=== PATIENT | male | born 1930 | race Caucasian/White ===

== ENCOUNTER 2017-06-12 22:03 | Inpatient (IN) | payer MEDICARE, BC ==
[~2017-06-12] VITALS: Ht 188 cm; Wt 78.0 kg
--- NOTE | ~2017-06-12 | EC ---
PATIENT:KATHLEEN BECKER DATE OF SERVICE: 06/13/17 SEX: M MEDICAL RECORD: [id number] DATE OF : [birth year] LOCATION:D.M2 D.211 AGE OF PATIENT: 87 ADMISSION DATE: 06/13/17 REFERRING PHYSICIAN: INTERPRETING PHYSICIAN: ACOSTA DUARTE MD ECHOCARDIOGRAM REPORT ECHO CHARGES 4 ECHO COMPLETE CLINICAL DIAGNOSIS: SOB ECHOCARDIOGRAPHIC MEASUREMENTS (adult normal given) AC root (d.<3.7cm) 4.5 cm LV Septum d (<1.2 cm> 1.5 cm Valve Excursion 2.0 cm LV Septum (systole) 1.7 cm Left Atria (s.<4.0cm> 2.0 cm LVPW d(<1.2cm) 1.6 cm RV (d.<2.3cm) 3.4 cm LVPW (sytole) 1.7 cm LV diastole(<5.6CM) 4.1 cm MV E-F(>70mm/sec) cm LV systole 2.7 cm LVOT Diameter 1.7 cm MV exc.(>10mm) 0.6 cm Est.ejection fraction (50-75%) % Pericardial Effusion N DOPPLER: LVIT cm/sec A 100 cm/sec E 45.0 cm/sec LA cm/sec RVSP 29 mmHg LVOT 79 cm/sec AOP1/2T m/s Asc. Ao 176 cm/sec RVOT 74 cm/sec RA cm/sec PA 87 cm/sec AV Gradient Peak 12.37mmHg AV Mean 5.84 mmHg AV Area 1.5 cm MV Gradient Peak 4.49 mmHg MV Mean 1.59 mmHg MV Area cm COMMENTS: Screener Operator: Gordon LOERA Dye Maker: 1 Dr. Duarte TAPE# PACS DATE OF SERVICE: 06/13/2017 Echocardiogram FINDINGS: 1. Left ventricular chamber size is within normal limits. Left ventricular systolic function is preserved. Overall ejection fraction 50-55%. 2. Left atrium is within normal limits at 3.4 cm. Right atrium and right ventricular chamber sizes are mildly dilated. 3. Valvular structures have normal structure and motion. ECHOCARDIOGRAM REPORT [id number] KATHLEEN BECKER 4. Doppler interrogation only reveals mild tricuspid regurgitation. No other valvular insufficiency or stenosis. Pulmonary systolic pressure is normal at 29 mmHg. 5. No evidence of pericardial effusion or left ventricular thrombus. TRANSINT:[id number] Voice Confirmation ID: [id number] DOCUMENT ID: [id number] ACOSTA DUARTE MD at 1323 CC: [id number] DICTATION DATE: 06/14/17 1055 FIRE SPRINKLER APPARATUS INSPECTOR: 06/14/17 1219 DIS IN 06/18/17 [place] [id number] [place] [id number]
[~2017-06-12 22:03] MED LIST: CLEOCIN HCL150 MG PO; HYDROCODONE-APA1 TAB PO; K-DUR20 MEQ PO; PRADAXA150 MG PO; QUESTRAN PACK4 G/PKT PO; TIMOPTIC 0.25% O5 M1 EACH EYE; XALATAN 0.0052.5 ML EACH EYE; ZOFRAN4 MG PO
[2017-06-12 23:01] LABS: BASOPHILS 0.2 % (0-2); EOSINOPHILS 0.5 % (0-7); HEMATOCRIT 35.9 % (42.0-54.0); HEMOGLOBIN 11.9 g/dL (13.5-17.5); IMMATURE GRANULOCYTES 0.2 % (0-5); LYMPHOCYTES 3.9 % (15-50); MCH 31.4 pg (26.0-34.0); MCHC 33.1 g/dL (31.0-37.0); MCV 94.7 fL (80.0-100.0); MONOCYTES 10.6 % (2-11); NEUTROPHILS 84.6 % (40-80); PLATELET COUNT 149 10x3/uL (130-400); RBC 3.79 10x6/uL (4.20-6.10); RDW 13.6 % (11.5-14.5); WBC 6.3 10x3/uL (4.8-10.8)
[2017-06-12 23:18] LABS: ALBUMIN 3.7 g/dL (3.4-5.0); ANION GAP 6.3 mmol/L (8-16); BILIRUBIN - TOTAL 0.89 mg/dL (0.2-1.3); CALCIUM 9.4 mg/dL (8.5-10.1); CARBON DIOXIDE 36.5 mmol/L (21.0-32.0); CREATININE - SERUM 1.1 mg/dL (0.6-1.3); POTASSIUM - SERUM 4.8 mmol/L (3.5-5.1); PROTEIN - SERUM 7.2 g/dL (6.4-8.2)
[2017-06-13 10:58] LABS: BASOPHILS 0.1 % (0-2); EOSINOPHILS 0 % (0-7); HEMATOCRIT 35.5 % (42.0-54.0); HEMOGLOBIN 11.8 g/dL (13.5-17.5); IMMATURE GRANULOCYTES 0.1 % (0-5); LYMPHOCYTES 4.4 % (15-50); MCH 31.4 pg (26.0-34.0); MCHC 33.2 g/dL (31.0-37.0); MCV 94.4 fL (80.0-100.0); MEAN PLATELET VOLUME 10.8 fL (7.4-10.4); MONOCYTES 11.8 % (2-11); NEUTROPHILS 83.6 % (40-80); RBC 3.76 10x6/uL (4.20-6.10); RDW 13.7 % (11.5-14.5); WBC 6.8 10x3/uL (4.8-10.8)
[2017-06-13 11:00] LABS: PLATELET COUNT 182 10x3/uL (130-400)
[2017-06-13] MEDS ORDERED: OXY IR30 MG PO (15:21)
[2017-06-13 15:24] VITALS: BP 140/59; BMI 22.7
[2017-06-13 16:06] VITALS: BP 140/59
[2017-06-13] MEDS ORDERED: GLYCOLAX527 GM PO (21:21)
[2017-06-13 21:25] VITALS: BP 122/61
[2017-06-14 00:36] VITALS: BP 138/60
[2017-06-14 04:45] VITALS: BP 133/66
[2017-06-14 05:29] LABS: BASOPHILS 0 % (0-2); EOSINOPHILS 0 % (0-7); HEMATOCRIT 34.8 % (42.0-54.0); HEMOGLOBIN 11.7 g/dL (13.5-17.5); IMMATURE GRANULOCYTES 0.2 % (0-5); LYMPHOCYTES 13.1 % (15-50); MCH 31.6 pg (26.0-34.0); MCHC 33.6 g/dL (31.0-37.0); MCV 94.1 fL (80.0-100.0); MEAN PLATELET VOLUME 9.8 fL (7.4-10.4); MONOCYTES 18.2 % (2-11); NEUTROPHILS 68.5 % (40-80); RDW 13.7 % (11.5-14.5)
[2017-06-14 05:30] LABS: PLATELET COUNT 134 10x3/uL (130-400); WBC 4.7 10x3/uL (4.8-10.8)
[2017-06-14 06:06] LABS: ALBUMIN 3.6 g/dL (3.4-5.0); ANION GAP 8.9 mmol/L (8-16); BILIRUBIN - TOTAL 0.7 mg/dL (0.2-1.3); CALCIUM 9.2 mg/dL (8.5-10.1); CARBON DIOXIDE 37.3 mmol/L (21.0-32.0); POTASSIUM - SERUM 4.2 mmol/L (3.5-5.1); PROTEIN - SERUM 7.5 g/dL (6.4-8.2)
[2017-06-14 06:10] LABS: CREATININE - SERUM 1.6 mg/dL (0.6-1.3)
[2017-06-14 08:05] VITALS: BP 132/71
[2017-06-14 12:10] VITALS: BP 117/63
[2017-06-14 12:31] VITALS: BMI 22.1
[2017-06-14 15:01] VITALS: BP 109/54
[2017-06-14 21:11] VITALS: BP 122/66
[2017-06-15 01:27] VITALS: BP 96/49
[2017-06-15 05:08] VITALS: BP 139/74
[2017-06-15 06:47] LABS: HEMATOCRIT 34.8 % (42.0-54.0); HEMOGLOBIN 11.8 g/dL (13.5-17.5); MCH 31.1 pg (26.0-34.0); MCHC 33.9 g/dL (31.0-37.0); MEAN PLATELET VOLUME 10.6 fL (7.4-10.4); PLATELET COUNT 157 10x3/uL (130-400); RBC 3.79 10x6/uL (4.20-6.10); RDW 13.8 % (11.5-14.5); WBC 4.8 10x3/uL (4.8-10.8)
[2017-06-15 06:50] LABS: MCV 91.8 fL (80.0-100.0)
[2017-06-15 07:09] LABS: ALBUMIN 3.3 g/dL (3.4-5.0); ANION GAP 10.7 mmol/L (8-16); BILIRUBIN - TOTAL 0.36 mg/dL (0.2-1.3); CREATININE - SERUM 1.4 mg/dL (0.6-1.3); POTASSIUM - SERUM 3.7 mmol/L (3.5-5.1); PROTEIN - SERUM 6.8 g/dL (6.4-8.2)
[2017-06-15 07:14] LABS: LYMPHOCYTES 13 % (15-50); MONOCYTES 12 % (2-11); NEUTROPHILS 68 % (40-80); PLATELET ESTIMATE DECREASED
[2017-06-15 07:54] VITALS: BP 107/51
[2017-06-15 12:57] VITALS: BP 113/76
[2017-06-15 16:10] VITALS: BP 103/58
[2017-06-15 20:58] VITALS: BP 111/59
[2017-06-16 05:19] VITALS: BP 107/62
[2017-06-16 05:37] LABS: BASOPHILS 0 % (0-2); EOSINOPHILS 0.3 % (0-7); HEMATOCRIT 36.4 % (42.0-54.0); HEMOGLOBIN 12.4 g/dL (13.5-17.5); IMMATURE GRANULOCYTES 0.3 % (0-5); LYMPHOCYTES 27.3 % (15-50); MCH 31.2 pg (26.0-34.0); MCHC 34.1 g/dL (31.0-37.0); MCV 91.5 fL (80.0-100.0); MEAN PLATELET VOLUME 10.5 fL (7.4-10.4); MONOCYTES 19.1 % (2-11); PLATELET COUNT 160 10x3/uL (130-400); RBC 3.98 10x6/uL (4.20-6.10); RDW 13.8 % (11.5-14.5)
[2017-06-16 05:41] LABS: WBC 3.3 10x3/uL (4.8-10.8)
[2017-06-16 06:03] LABS: ALBUMIN 3.5 g/dL (3.4-5.0); ANION GAP 10.3 mmol/L (8-16); BILIRUBIN - TOTAL 0.47 mg/dL (0.2-1.3); CALCIUM 9.1 mg/dL (8.5-10.1); CARBON DIOXIDE 35.1 mmol/L (21.0-32.0); CREATININE - SERUM 1.5 mg/dL (0.6-1.3); POTASSIUM - SERUM 3.4 mmol/L (3.5-5.1)
[2017-06-16 12:25] VITALS: BP 107/59
[2017-06-16 16:18] VITALS: BP 106/62
[2017-06-16 20:50] VITALS: BP 105/60
[2017-06-17 01:45] VITALS: BP 124/71
[2017-06-17 06:22] LABS: BASOPHILS 0 % (0-2); EOSINOPHILS 0.3 % (0-7); HEMATOCRIT 35.6 % (42.0-54.0); HEMOGLOBIN 12.1 g/dL (13.5-17.5); IMMATURE GRANULOCYTES 0.3 % (0-5); LYMPHOCYTES 24.1 % (15-50); MCH 31.5 pg (26.0-34.0); MCV 92.7 fL (80.0-100.0); MEAN PLATELET VOLUME 10.5 fL (7.4-10.4); MONOCYTES 17.5 % (2-11); NEUTROPHILS 57.8 % (40-80); PLATELET COUNT 150 10x3/uL (130-400); RBC 3.84 10x6/uL (4.20-6.10); RDW 13.9 % (11.5-14.5); WBC 3.8 10x3/uL (4.8-10.8)
[2017-06-17 06:31] LABS: ALBUMIN 3.6 g/dL (3.4-5.0); ANION GAP 7.1 mmol/L (8-16); BILIRUBIN - TOTAL 0.41 mg/dL (0.2-1.3); CALCIUM 9.1 mg/dL (8.5-10.1); CARBON DIOXIDE 36.9 mmol/L (21.0-32.0); CREATININE - SERUM 1.3 mg/dL (0.6-1.3); PROTEIN - SERUM 6.5 g/dL (6.4-8.2)
[2017-06-17 07:01] VITALS: BP 107/66
[2017-06-17 07:25] LABS: DIGOXIN 0.01 ng/mL (0.90-2.00)
[2017-06-17 09:25] VITALS: BP 113/61
[2017-06-17 12:43] VITALS: BP 110/62
[2017-06-17 17:32] VITALS: BP 180/64
[2017-06-17 20:00] VITALS: BP 122/61
[2017-06-18] VITALS: BP 115/61
[2017-06-18 04:00] VITALS: BP 119/66
[2017-06-18 05:30] LABS: BASOPHILS 0 % (0-2); EOSINOPHILS 0.8 % (0-7); HEMATOCRIT 31.8 % (42.0-54.0); IMMATURE GRANULOCYTES 0.3 % (0-5); LYMPHOCYTES 23.1 % (15-50); MCH 31.6 pg (26.0-34.0); MCHC 34.6 g/dL (31.0-37.0); MCV 91.4 fL (80.0-100.0); MEAN PLATELET VOLUME 10.3 fL (7.4-10.4); MONOCYTES 13.8 % (2-11); PLATELET COUNT 137 10x3/uL (130-400); RBC 3.48 10x6/uL (4.20-6.10); RDW 13.7 % (11.5-14.5); WBC 3.8 10x3/uL (4.8-10.8)
[2017-06-18 05:44] LABS: ALBUMIN 3.2 g/dL (3.4-5.0); ALKALINE PHOSPHATASE 88 U/L (46-116); ALT (SGPT) 22 U/L (10-68); BILIRUBIN - TOTAL 0.42 mg/dL (0.2-1.3); CALC OSMOLALITY 279 mosm/kg (275-300); CALCIUM 8.9 mg/dL (8.5-10.1); CARBON DIOXIDE 34.9 mmol/L (21.0-32.0); CHLORIDE - SERUM 96 mmol/L (98-107); GLUCOSE 84 mg/dL (74-106); PROTEIN - SERUM 6.5 g/dL (6.4-8.2); SODIUM 136 mmol/L (136-145); UREA NITROGEN 38 mg/dL (7-18); eGFR NON AFRICAN AMERICAN 75 mL/min (90-120)
[2017-06-18 10:18] VITALS: BP 113/64
[2017-06-18] MEDS ORDERED: PROTONIX40 MG PO (15:15)
[2017-06-18] MEDS ORDERED: ATROVENT 0.02%2.5 ML UPD (15:16)
[2017-06-18] MEDS ORDERED: BROVANA15 MCG/2 M INH (15:16)
[2017-06-18] MEDS ORDERED: XOPENEX 0.0.63 MG/3 UPD (15:16)
[2017-06-18] MEDS ORDERED: QUESTRAN PACK4 G/PKT PO (15:17)
[2017-06-18] MEDS ORDERED: LOVENOX30 MG/0.3 SC (15:17)
[2017-06-18] MEDS ORDERED: LANOXIN IN0.5 MG/2 M IV (15:17)
[2017-06-18] MEDS ORDERED: ZITHROMAX 500M500 MG PO (15:17)
[2017-06-18] MEDS ORDERED: K-DUR20 MEQ PO (15:18)
[2017-06-18] MEDS ORDERED: FUROSEMIDE10 MG/M1 IV (15:18)
[2017-06-18] MEDS ORDERED: MUCINEX600 MG PO (15:19)
[2017-06-18] MEDS ORDERED: SINGULAIR10 MG PO (15:19)
[2017-06-18] MEDS ORDERED: PULMICORT0.5 MG/21 UPD (15:19)
[2017-06-18] MEDS ORDERED: TESSALON PERLE100 MG PO (15:19)
[2017-06-18] MEDS ORDERED: ZITHROMAX500 MG PO (15:38)
[2017-06-18] MEDS ORDERED: FUROSEMIDE20 MG PO (15:39)
[2017-06-18] MEDS ORDERED: LANOXIN125 MCG PO (15:39)
[2017-06-18 21:39] VITALS: Ht 188 cm; Wt 78.0 kg
[2017-06-19 07:21] LABS: IMMUNOGLOBULIN E 6 IU/mL (0-100)
== END 2017-06-18 17:00 | DRG 177 ==
LOC: D.ER 22:03 → D.M2 06-13 07:24 → D.SDCHOLD 06-13 07:24 → D.M2 06-13 13:59
PROVIDERS: Emergency Medicine; Family Medicine; Internal Medicine Pulmonary Disease
DX: J69.0 Pneumonitis due to inhalation of food and vomit (principal); I50.23 Acute on chronic systolic (congestive) heart failure; J44.1 Chronic obstructive pulmonary disease with (acute) exacerbation; J44.0 Chronic obstructive pulmonary disease with (acute) lower respiratory infection; J98.11 Atelectasis; I42.9 Cardiomyopathy, unspecified; J96.10 Chronic respiratory failure, unspecified whether with hypoxia or hypercapnia; J18.9 Pneumonia, unspecified organism; N18.9 Chronic kidney disease, unspecified; R39.2 Extrarenal uremia; G62.9 Polyneuropathy, unspecified; E87.6 Hypokalemia; I25.10 Atherosclerotic heart disease of native coronary artery without angina pectoris; Z99.81 Dependence on supplemental oxygen; D64.9 Anemia, unspecified; I48.2 Chronic atrial fibrillation; J30.9 Allergic rhinitis, unspecified; I95.1 Orthostatic hypotension; Z95.0 Presence of cardiac pacemaker; Z87.891 Personal history of nicotine dependence

== ENCOUNTER 2017-06-18 17:03 | Inpatient (IN) | payer MEDICARE, BC ==
[~2017-06-18] VITALS: Ht 188 cm; Wt 79.4 kg
[~2017-06-18 17:03] MED LIST changes: +ATROVENT 0.02%2.5 ML UPD; +BROVANA15 MCG/2 M INH; +FUROSEMIDE10 MG/M1 IV; +FUROSEMIDE20 MG PO; +GLYCOLAX527 GM PO; +LANOXIN IN0.5 MG/2 M IV; +LANOXIN125 MCG PO; +LOVENOX30 MG/0.3 SC; +MUCINEX600 MG PO; +OXY IR30 MG PO; +PROTONIX40 MG PO; +PULMICORT0.5 MG/21 UPD; +SINGULAIR10 MG PO; +TESSALON PERLE100 MG PO; +XOPENEX 0.0.63 MG/3 UPD; +ZITHROMAX 500M500 MG PO; +ZITHROMAX500 MG PO
[2017-06-18 18:32] VITALS: BP 92/53; BMI 22.5
[2017-06-19 06:21] LABS: BASOPHILS 0.2 % (0-2); EOSINOPHILS 0.8 % (0-7); HEMOGLOBIN 11.1 g/dL (13.5-17.5); IMMATURE GRANULOCYTES 0.2 % (0-5); LYMPHOCYTES 20.8 % (15-50); MCH 31.7 pg (26.0-34.0); MCHC 34.7 g/dL (31.0-37.0); MCV 91.4 fL (80.0-100.0); MEAN PLATELET VOLUME 10.5 fL (7.4-10.4); MONOCYTES 11.5 % (2-11); NEUTROPHILS 66.5 % (40-80); PLATELET COUNT 132 10x3/uL (130-400); RDW 13.7 % (11.5-14.5)
[2017-06-19 06:30] LABS: WBC 4.8 10x3/uL (4.8-10.8)
[2017-06-19 06:57] LABS: ANION GAP 9.2 mmol/L (8-16); CALCIUM 8.9 mg/dL (8.5-10.1); CARBON DIOXIDE 37.2 mmol/L (21.0-32.0); CREATININE - SERUM 1.1 mg/dL (0.6-1.3); POTASSIUM - SERUM 4.4 mmol/L (3.5-5.1)
[2017-06-19 07:58] VITALS: BP 117/57
[2017-06-19 10:37] VITALS: Ht 188 cm; Wt 79.4 kg
[2017-06-19 19:30] VITALS: BP 129/61
[2017-06-20 08:34] VITALS: BP 122/56
[2017-06-20 23:31] VITALS: BP 118/54
[2017-06-21 06:53] LABS: BASOPHILS 0.1 % (0-2); EOSINOPHILS 0.4 % (0-7); HEMATOCRIT 31.2 % (42.0-54.0); HEMOGLOBIN 10.5 g/dL (13.5-17.5); IMMATURE GRANULOCYTES 0.5 % (0-5); LYMPHOCYTES 10.7 % (15-50); MCH 31.1 pg (26.0-34.0); MCHC 33.7 g/dL (31.0-37.0); MCV 92.3 fL (80.0-100.0); MEAN PLATELET VOLUME 10.4 fL (7.4-10.4); MONOCYTES 12.1 % (2-11); NEUTROPHILS 76.2 % (40-80); PLATELET COUNT 117 10x3/uL (130-400); RBC 3.38 10x6/uL (4.20-6.10); RDW 13.8 % (11.5-14.5)
[2017-06-21 06:56] LABS: WBC 7.7 10x3/uL (4.8-10.8)
[2017-06-21 07:18] LABS: CALC OSMOLALITY 273 mosm/kg (275-300); CARBON DIOXIDE 33.5 mmol/L (21.0-32.0); CHLORIDE - SERUM 96 mmol/L (98-107); CREATININE - SERUM 0.9 mg/dL (0.6-1.3); GLUCOSE 101 mg/dL (74-106); POTASSIUM - SERUM 4.5 mmol/L (3.5-5.1); SODIUM 135 mmol/L (136-145); UREA NITROGEN 25 mg/dL (7-18); eGFR NON AFRICAN AMERICAN 85 mL/min (90-120)
[2017-06-21 19:00] VITALS: BP 122/54
[2017-06-22 08:16] VITALS: BP 112/54
[2017-06-22 19:00] VITALS: BP 117/48
[2017-06-23 08:23] VITALS: BP 132/54
[2017-06-23 19:00] VITALS: BP 124/52
[2017-06-24 07:28] LABS: BASOPHILS 0 % (0-2); EOSINOPHILS 0.5 % (0-7); HEMATOCRIT 27.6 % (42.0-54.0); HEMOGLOBIN 9.2 g/dL (13.5-17.5); IMMATURE GRANULOCYTES 0.4 % (0-5); LYMPHOCYTES 8.1 % (15-50); MCH 31.4 pg (26.0-34.0); MCHC 33.3 g/dL (31.0-37.0); MCV 94.2 fL (80.0-100.0); MEAN PLATELET VOLUME 10.4 fL (7.4-10.4); MONOCYTES 13.9 % (2-11); NEUTROPHILS 77.1 % (40-80); RBC 2.93 10x6/uL (4.20-6.10); RDW 13.6 % (11.5-14.5); WBC 7.9 10x3/uL (4.8-10.8)
[2017-06-24 07:31] LABS: PLATELET COUNT 202 10x3/uL (130-400)
[2017-06-24 07:46] LABS: ANION GAP 8.8 mmol/L (8-16); CALCIUM 9.1 mg/dL (8.5-10.1); CARBON DIOXIDE 34.2 mmol/L (21.0-32.0); CREATININE - SERUM 1.1 mg/dL (0.6-1.3); DIGOXIN 0.73 ng/mL (0.90-2.00)
[2017-06-24 08:00] VITALS: BP 98/48
[2017-06-25 01:01] VITALS: BP 100/55
[2017-06-25 08:00] VITALS: BP 106/53
[2017-06-25 11:09] LABS: CKMB 0.4 U/L (0.0-3.6); CREATINE KINASE 12 UL (21-232); TROPONIN-I 0.025 ng/mL (0.000-0.060)
[2017-06-25 16:43] LABS: CKMB 0.4 U/L (0.0-3.6); CREATINE KINASE 14 UL (21-232); TROPONIN-I < 0.017 ng/mL (0.000-0.060)
[2017-06-25 21:55] LABS: CKMB 0.5 U/L (0.0-3.6); CREATINE KINASE 10 UL (21-232)
[2017-06-25 22:07] LABS: TROPONIN-I < 0.017 ng/mL (0.000-0.060)
[2017-06-26 08:16] VITALS: BP 108/45
[2017-06-26 19:30] VITALS: BP 109/47
[2017-06-27 08:00] VITALS: BP 119/54
[2017-06-27 08:28] LABS: HEMATOCRIT 27.2 % (42.0-54.0); HEMOGLOBIN 8.9 g/dL (13.5-17.5); LYMPHOCYTES 9.3 % (15-50); MCHC 32.7 g/dL (31.0-37.0); MCV 94.8 fL (80.0-100.0); NEUTROPHILS 78.2 % (40-80); RBC 2.87 10x6/uL (4.20-6.10); RDW 12.9 % (11.5-14.5); WBC 6.7 10x3/uL (4.8-10.8)
[2017-06-27 08:29] LABS: PLATELET COUNT 263 10x3/uL (130-400)
[2017-06-27 08:58] LABS: ANION GAP 9.2 mmol/L (8-16); CALCIUM 8.9 mg/dL (8.5-10.1); CREATININE - SERUM 1.2 mg/dL (0.6-1.3); POTASSIUM - SERUM 5.2 mmol/L (3.5-5.1)
[2017-06-27 21:56] VITALS: BP 149/51
[2017-06-28 08:00] VITALS: BP 109/52
[2017-06-28] MEDS ORDERED: LEXAPRO10 MG PO (11:06)
[2017-06-28] MEDS ORDERED: REMERON15 MG PO (13:14)
== END 2017-06-28 14:50 | disposition home health service (06) | DRG 190 ==
LOC: D.REHAB 17:03
PROVIDERS: Emergency Medicine
DX: J44.1 Chronic obstructive pulmonary disease with (acute) exacerbation (principal); J18.9 Pneumonia, unspecified organism; I50.23 Acute on chronic systolic (congestive) heart failure; J90 Pleural effusion, not elsewhere classified; J98.11 Atelectasis; I42.9 Cardiomyopathy, unspecified; I48.2 Chronic atrial fibrillation; I25.10 Atherosclerotic heart disease of native coronary artery without angina pectoris; R53.1 Weakness; Z66 Do not resuscitate; R53.83 Other fatigue; E86.0 Dehydration; D64.9 Anemia, unspecified; E87.6 Hypokalemia; Z99.81 Dependence on supplemental oxygen; R50.9 Fever, unspecified; G62.9 Polyneuropathy, unspecified

== ENCOUNTER → 2017-07-30 14:23 | Outpatient (CLI) | payer MEDICARE, BC ==
[2017-06-19 10:37] VITALS: BMI 22.4
[~2017-07-30 14:23] MED LIST changes: +LEXAPRO10 MG PO; +REMERON15 MG PO
[2017-07-30 14:43] LABS: BASOPHILS 0.1 % (0-2); EOSINOPHILS 0.5 % (0-7); HEMATOCRIT 37.4 % (42.0-54.0); HEMOGLOBIN 12.2 g/dL (13.5-17.5); IMMATURE GRANULOCYTES 0.1 % (0-5); LYMPHOCYTES 14.3 % (15-50); MCH 31.5 pg (26.0-34.0); MCHC 32.6 g/dL (31.0-37.0); MCV 96.6 fL (80.0-100.0); MEAN PLATELET VOLUME 10.5 fL (7.4-10.4); MONOCYTES 11.1 % (2-11); NEUTROPHILS 73.9 % (40-80); PLATELET COUNT 224 10x3/uL (130-400); RBC 3.87 10x6/uL (4.20-6.10); RDW 14.5 % (11.5-14.5); WBC 8.1 10x3/uL (4.8-10.8)
[2017-07-30 15:21] LABS: ALBUMIN 3.6 g/dL (3.4-5.0); ALKALINE PHOSPHATASE 96 U/L (46-116); ALT (SGPT) 16 U/L (10-68); BILIRUBIN - TOTAL 0.49 mg/dL (0.2-1.3); CALC OSMOLALITY 277 mosm/kg (275-300); CALCIUM 9.1 mg/dL (8.5-10.1); CARBON DIOXIDE 33.2 mmol/L (21.0-32.0); CHLORIDE - SERUM 100 mmol/L (98-107); GLUCOSE 116 mg/dL (74-106); POTASSIUM - SERUM 4.5 mmol/L (3.5-5.1); PROTEIN - SERUM 6.7 g/dL (6.4-8.2); SODIUM 137 mmol/L (136-145); THYROID STIMULATING HORMONE 1.04 uIU/mL (0.36-3.74); UREA NITROGEN 20 mg/dL (7-18); eGFR NON AFRICAN AMERICAN 75 mL/min (90-120)
== END | disposition home or self-care (01) ==
LOC: D.LABREF 14:23
PROVIDERS: Emergency Medicine
DX: J44.1 Chronic obstructive pulmonary disease with (acute) exacerbation (principal); N18.9 Chronic kidney disease, unspecified; D64.9 Anemia, unspecified; I50.43 Acute on chronic combined systolic (congestive) and diastolic (congestive) heart failure

== ENCOUNTER 2017-08-20 12:55 | Emergency (ER) | payer MEDICARE, BC ==
[2017-06-19 10:37] VITALS: BMI 22.4
[2017-08-20 13:46] LABS: BASOPHILS 0.1 % (0-2); EOSINOPHILS 0.7 % (0-7); HEMATOCRIT 35.1 % (42.0-54.0); HEMOGLOBIN 11.8 g/dL (13.5-17.5); IMMATURE GRANULOCYTES 0.1 % (0-5); LYMPHOCYTES 13.1 % (15-50); MCH 31.6 pg (26.0-34.0); MCHC 33.6 g/dL (31.0-37.0); MCV 93.9 fL (80.0-100.0); MEAN PLATELET VOLUME 9.9 fL (7.4-10.4); PLATELET COUNT 156 10x3/uL (130-400); RBC 3.74 10x6/uL (4.20-6.10); WBC 7.3 10x3/uL (4.8-10.8)
[2017-08-20 14:04] LABS: ALBUMIN 3.5 g/dL (3.4-5.0); ALKALINE PHOSPHATASE 79 U/L (46-116); ALT (SGPT) 17 U/L (10-68); BILIRUBIN - TOTAL 0.84 mg/dL (0.2-1.3); CALC OSMOLALITY 275 mosm/kg (275-300); CALCIUM 9.5 mg/dL (8.5-10.1); CHLORIDE - SERUM 99 mmol/L (98-107); CREATININE - SERUM 0.9 mg/dL (0.6-1.3); GLUCOSE 105 mg/dL (74-106); POTASSIUM - SERUM 4.1 mmol/L (3.5-5.1); SODIUM 137 mmol/L (136-145); UREA NITROGEN 18 mg/dL (7-18); eGFR NON AFRICAN AMERICAN 85 mL/min (90-120)
[2017-08-20 14:12] LABS: PRO BNP 937 pg/mL (0-450)
[2017-08-20 14:18] LABS: DIGOXIN 0.77 ng/mL (0.90-2.00); MAGNESIUM - SERUM 2.4 mg/dL (1.8-2.4)
[2017-08-20 14:54] LABS: APPEARANCE CLEAR (CLEAR); BILIRUBIN NEGATIVE (NEGATIVE); COLOR YELLOW (YELLOW); GLUCOSE NEGATIVE (NEGATIVE); KETONE NEGATIVE (NEGATIVE); NITRITE NEGATIVE (NEGATIVE); PROTEIN TRACE mg/dL (NEGATIVE); SPECIFIC GRAVITY 1.015 (1.005-1.020); UROBILINOGEN NORMAL (NORMAL)
[2017-08-20 15:08] LABS: RED CELLS - URINE 0-5 /hpf (0-5)
[2017-08-20 15:09] LABS: BACTERIA FEW /hpf (NONE SEEN)
== END 2017-08-20 17:06 | disposition home or self-care (01) ==
LOC: D.ER 12:55
PROVIDERS: Emergency Medicine
DX: R06.00 Dyspnea, unspecified (principal); I48.92 Unspecified atrial flutter; D64.9 Anemia, unspecified; I50.9 Heart failure, unspecified; N39.0 Urinary tract infection, site not specified; J44.9 Chronic obstructive pulmonary disease, unspecified; Z95.0 Presence of cardiac pacemaker

== ENCOUNTER 2017-08-29 11:34 | Inpatient (IN) | payer MEDICARE, BC ==
[~2017-08-29] VITALS: Ht 188 cm; Wt 72.6 kg
--- NOTE | ~2017-08-29 | EC ---
PATIENT:KATHLEEN BECKER DATE OF SERVICE: 08/29/17 SEX: M MEDICAL RECORD: [id number] DATE OF : 30 LOCATION:[facility] AGE OF PATIENT: 87 ADMISSION DATE: 08/29/17 REFERRING PHYSICIAN: INTERPRETING PHYSICIAN: ACOSTA DUARTE MD ECHOCARDIOGRAM REPORT ECHO CHARGES 4 ECHO COMPLETE DATE: CLINICAL DIAGNOSIS: CHEST PAIN/ATRIAL FLUTTER ECHOCARDIOGRAPHIC MEASUREMENTS (adult normal given) AC root (d.<3.7cm) 4.0 cm LV Septum d (<1.2 cm> 1.7 cm Valve Excursion 2.1 cm LV Septum (systole) 1.9 cm Left Atria (s.<4.0cm> 3.6 cm LVPW d(<1.2cm) 1.9 cm RV (d.<2.3cm) 3.1 cm LVPW (sytole) 2.0 cm LV diastole(<5.6CM) 4.0 cm MV E-F(>70mm/sec) cm LV systole 2.3 cm LVOT Diameter 2.4 cm MV exc.(>10mm) 1.5 cm Est.ejection fraction (50-75%) % DOPPLER: LVIT cm/sec A 82.0 cm/sec E 61.0 cm/sec LA cm/sec RVSP 28 mmHg LVOT 86 cm/sec AOP1/2T m/s Asc. Ao 124 cm/sec RVOT 103 cm/sec RA cm/sec PA 126 cm/sec AV Gradient Peak 6.16 mmHg AV Mean 3.32 mmHg AV Area 2.9 cm MV Gradient Peak 4.67 mmHg MV Mean 1.34 mmHg MV Area cm COMMENTS: Head Turning Machine Operator: Gordon LOERA Heat Treat Inspector: 1 Dr. Duarte TAPE# PACS Pericardial Effusion N DATE OF SERVICE: 09/01/2017 Echocardiogram FINDINGS: 1. Left ventricular chamber size is within normal limits. Left ventricular systolic function is normal. Overall ejection fraction estimated at 60%. 2. Left atrium, right atrium, and right ventricular chamber sizes are within normal limits. 3. Valvular structures have normal structure and motion. ECHOCARDIOGRAM REPORT [id number] KATHLEEN BECKER 4. Doppler interrogation reveals mild mitral regurgitation, mild tricuspid regurgitation, no other valvular insufficiency or stenosis. 5. No evidence of pericardial effusion or left ventricular thrombus. TRANSINT:[id number] Voice Confirmation ID: [id number] DOCUMENT ID: [id number] ACOSTA DUARTE MD at 1140 CC: [id number] DICTATION DATE: 09/02/17 1252 WINDOWS SERVER ARCHITECT: 09/02/17 1301 DIS IN 09/03/17 [place] [id number] [place] [id number]
[2017-08-29 12:36] VITALS: BP 136/64
[2017-08-29 13:18] LABS: BASOPHILS 0.3 % (0-2); EOSINOPHILS 0.4 % (0-7); HEMATOCRIT 35.7 % (42.0-54.0); HEMOGLOBIN 12.2 g/dL (13.5-17.5); IMMATURE GRANULOCYTES 0.3 % (0-5); LYMPHOCYTES 8.7 % (15-50); MCH 31.4 pg (26.0-34.0); MCHC 34.2 g/dL (31.0-37.0); MEAN PLATELET VOLUME 10.1 fL (7.4-10.4); MONOCYTES 14.3 % (2-11); PLATELET COUNT 181 10x3/uL (130-400); RBC 3.88 10x6/uL (4.20-6.10); WBC 7.9 10x3/uL (4.8-10.8)
[2017-08-29 13:35] LABS: ALKALINE PHOSPHATASE 80 U/L (46-116); ALT (SGPT) 18 U/L (10-68); BILIRUBIN - TOTAL 1.23 mg/dL (0.2-1.3); CALC OSMOLALITY 274 mosm/kg (275-300); CALCIUM 9.4 mg/dL (8.5-10.1); CARBON DIOXIDE 31.2 mmol/L (21.0-32.0); CHLORIDE - SERUM 96 mmol/L (98-107); GLUCOSE 111 mg/dL (74-106); POTASSIUM - SERUM 4.2 mmol/L (3.5-5.1); SODIUM 135 mmol/L (136-145); UREA NITROGEN 23 mg/dL (7-18); eGFR NON AFRICAN AMERICAN 75 mL/min (90-120)
[2017-08-29] MEDS ORDERED: MUCINEX600 MG PO (13:41)
[2017-08-29 13:46] LABS: CKMB 2.1 U/L (0.0-3.6); CREATINE KINASE 33 UL (21-232); DIGOXIN 0.83 ng/mL (0.90-2.00); PRO BNP 888 pg/mL (0-450); TROPONIN-I 0.028 ng/mL (0.000-0.060)
[2017-08-29 15:46] VITALS: BP 125/53
[2017-08-29 19:14] VITALS: BMI 20.5
[2017-08-29 20:00] VITALS: BP 114/40
[2017-08-30] VITALS: BP 148/54
[2017-08-30 04:00] VITALS: BP 134/52
[2017-08-30 08:08] VITALS: BP 131/60
[2017-08-30 12:57] VITALS: BP 127/42
[2017-08-30 13:23] VITALS: BMI 20.5
[2017-08-30 14:13] VITALS: Ht 188 cm; Wt 72.6 kg
[2017-08-30 16:37] VITALS: BP 150/67
[2017-08-30 22:00] VITALS: BP 127/57
[2017-08-31 00:32] VITALS: BP 134/50
[2017-08-31 04:00] VITALS: BP 125/56
[2017-08-31 06:29] LABS: BASOPHILS 0 % (0-2); EOSINOPHILS 0.9 % (0-7); HEMATOCRIT 32.6 % (42.0-54.0); IMMATURE GRANULOCYTES 0.2 % (0-5); LYMPHOCYTES 12.1 % (15-50); MCHC 33.7 g/dL (31.0-37.0); MCV 91.8 fL (80.0-100.0); MEAN PLATELET VOLUME 10.2 fL (7.4-10.4); MONOCYTES 12.3 % (2-11); NEUTROPHILS 74.5 % (40-80); PLATELET COUNT 166 10x3/uL (130-400); RBC 3.55 10x6/uL (4.20-6.10); RDW 13.7 % (11.5-14.5)
[2017-08-31 06:33] LABS: WBC 5.4 10x3/uL (4.8-10.8)
[2017-08-31 06:43] LABS: CALC OSMOLALITY 269 mosm/kg (275-300); CALCIUM 8.9 mg/dL (8.5-10.1); CARBON DIOXIDE 31.2 mmol/L (21.0-32.0); CHLORIDE - SERUM 95 mmol/L (98-107); GLUCOSE 94 mg/dL (74-106); POTASSIUM - SERUM 3.9 mmol/L (3.5-5.1); SODIUM 134 mmol/L (136-145); UREA NITROGEN 18 mg/dL (7-18); eGFR NON AFRICAN AMERICAN 75 mL/min (90-120)
[2017-08-31 08:03] VITALS: BP 152/56
[2017-08-31 12:16] VITALS: BP 122/58
[2017-08-31 16:14] VITALS: BP 130/57
[2017-08-31 20:00] VITALS: BP 119/56
[2017-09-01] VITALS: BP 132/69
[2017-09-01 04:00] VITALS: BP 130/51
[2017-09-01 05:16] LABS: CALC OSMOLALITY 270 mosm/kg (275-300); CARBON DIOXIDE 32.5 mmol/L (21.0-32.0); CHLORIDE - SERUM 96 mmol/L (98-107); GLUCOSE 94 mg/dL (74-106); SODIUM 134 mmol/L (136-145); UREA NITROGEN 20 mg/dL (7-18); eGFR NON AFRICAN AMERICAN 75 mL/min (90-120)
[2017-09-01 05:25] LABS: BASOPHILS 0.2 % (0-2); HEMATOCRIT 33.6 % (42.0-54.0); HEMOGLOBIN 11.5 g/dL (13.5-17.5); IMMATURE GRANULOCYTES 0.2 % (0-5); LYMPHOCYTES 12.8 % (15-50); MCH 31.3 pg (26.0-34.0); MCHC 34.2 g/dL (31.0-37.0); MCV 91.3 fL (80.0-100.0); MEAN PLATELET VOLUME 10.4 fL (7.4-10.4); MONOCYTES 14.6 % (2-11); NEUTROPHILS 71.2 % (40-80); PLATELET COUNT 173 10x3/uL (130-400); RBC 3.68 10x6/uL (4.20-6.10); RDW 13.9 % (11.5-14.5); WBC 6.1 10x3/uL (4.8-10.8)
[2017-09-01 08:06] VITALS: BP 109/49
[2017-09-01 12:12] VITALS: BP 131/58
[2017-09-01 15:05] LABS: CKMB 2.3 U/L (0.0-3.6); CREATINE KINASE 60 UL (21-232); TROPONIN-I 0.045 ng/mL (0.000-0.060)
[2017-09-01 16:27] VITALS: BP 110/47
[2017-09-01 20:00] VITALS: BP 129/54
[2017-09-01 20:24] LABS: CREATINE KINASE 55 UL (21-232); TROPONIN-I 0.033 ng/mL (0.000-0.060)
[2017-09-02] VITALS: BP 133/64
[2017-09-02 01:48] LABS: CREATINE KINASE 69 UL (21-232); TROPONIN-I 0.034 ng/mL (0.000-0.060)
[2017-09-02 06:00] VITALS: BP 141/65
[2017-09-02 06:14] LABS: BASOPHILS 0 % (0-2); EOSINOPHILS 0.8 % (0-7); HEMATOCRIT 37.7 % (42.0-54.0); HEMOGLOBIN 13.1 g/dL (13.5-17.5); IMMATURE GRANULOCYTES 0.3 % (0-5); MCH 31.8 pg (26.0-34.0); MCHC 34.7 g/dL (31.0-37.0); MCV 91.5 fL (80.0-100.0); MONOCYTES 15.3 % (2-11); NEUTROPHILS 76.6 % (40-80); PLATELET COUNT 166 10x3/uL (130-400); RBC 4.12 10x6/uL (4.20-6.10); RDW 13.9 % (11.5-14.5); WBC 6.3 10x3/uL (4.8-10.8)
[2017-09-02 06:32] LABS: ANION GAP 11.8 mmol/L (8-16); CALCIUM 9.9 mg/dL (8.5-10.1); CARBON DIOXIDE 34.3 mmol/L (21.0-32.0); CREATININE - SERUM 1.3 mg/dL (0.6-1.3); POTASSIUM - SERUM 4.1 mmol/L (3.5-5.1)
[2017-09-02 08:45] VITALS: BP 124/67
[2017-09-02 13:11] VITALS: BP 103/40
[2017-09-02 16:44] VITALS: BP 143/61
[2017-09-02 16:58] LABS: APPEARANCE CLEAR (CLEAR); COLOR YELLOW (YELLOW); SPECIFIC GRAVITY 1.005 (1.005-1.020)
[2017-09-02 16:59] LABS: BILIRUBIN NEGATIVE (NEGATIVE); GLUCOSE NEGATIVE (NEGATIVE); KETONE NEGATIVE (NEGATIVE); NITRITE NEGATIVE (NEGATIVE); PROTEIN NEGATIVE (NEGATIVE); UROBILINOGEN NORMAL (NORMAL)
[2017-09-02 20:00] VITALS: BP 114/42
[2017-09-03 06:01] LABS: BASOPHILS 0 % (0-2); EOSINOPHILS 0.7 % (0-7); HEMATOCRIT 36.3 % (42.0-54.0); IMMATURE GRANULOCYTES 0.2 % (0-5); LYMPHOCYTES 9.2 % (15-50); MCHC 33.1 g/dL (31.0-37.0); MEAN PLATELET VOLUME 10.2 fL (7.4-10.4); MONOCYTES 15.5 % (2-11); NEUTROPHILS 74.4 % (40-80); PLATELET COUNT 150 10x3/uL (130-400); RBC 3.87 10x6/uL (4.20-6.10)
[2017-09-03 06:12] LABS: WBC 4.3 10x3/uL (4.8-10.8)
[2017-09-03 06:13] LABS: MCV 93.8 fL (80.0-100.0)
[2017-09-03 06:28] LABS: ANION GAP 8.3 mmol/L (8-16); CALCIUM 9.4 mg/dL (8.5-10.1); CARBON DIOXIDE 35.4 mmol/L (21.0-32.0); CREATININE - SERUM 1.2 mg/dL (0.6-1.3); POTASSIUM - SERUM 4.7 mmol/L (3.5-5.1)
[2017-09-03 08:55] VITALS: BP 108/31
[2017-09-03 13:05] VITALS: BP 99/39
[2017-09-03 16:00] VITALS: BP 91/42
== END 2017-09-03 17:50 | DRG 177 ==
LOC: D.MS 11:34
PROVIDERS: Emergency Medicine; Internal Medicine Nephrology
DX: J15.6 Pneumonia due to other Gram-negative bacteria (principal); I50.33 Acute on chronic diastolic (congestive) heart failure; J44.0 Chronic obstructive pulmonary disease with (acute) lower respiratory infection; J98.11 Atelectasis; J44.1 Chronic obstructive pulmonary disease with (acute) exacerbation; I24.8 Other forms of acute ischemic heart disease; N17.9 Acute kidney failure, unspecified; F41.9 Anxiety disorder, unspecified; I07.1 Rheumatic tricuspid insufficiency; I48.91 Unspecified atrial fibrillation; D64.9 Anemia, unspecified; K21.9 Gastro-esophageal reflux disease without esophagitis; G62.9 Polyneuropathy, unspecified; H40.9 Unspecified glaucoma; Z95.0 Presence of cardiac pacemaker; Z87.891 Personal history of nicotine dependence; R33.9 Retention of urine, unspecified

== ENCOUNTER 2017-09-03 18:45 | Inpatient (IN) | payer MEDICARE, BC ==
[~2017-09-03] VITALS: Ht 188 cm; Wt 72.6 kg
[2017-09-03 20:19] VITALS: BP 107/51
[2017-09-03 20:32] VITALS: BP 107/51; BMI 20.5
[2017-09-04 07:46] VITALS: BP 138/53
[2017-09-04 09:09] LABS: BASOPHILS 0 % (0-2); EOSINOPHILS 0.3 % (0-7); HEMATOCRIT 37.9 % (42.0-54.0); HEMOGLOBIN 12.7 g/dL (13.5-17.5); IMMATURE GRANULOCYTES 0.5 % (0-5); LYMPHOCYTES 15.2 % (15-50); MCH 31.4 pg (26.0-34.0); MCHC 33.5 g/dL (31.0-37.0); MCV 93.6 fL (80.0-100.0); MEAN PLATELET VOLUME 10.2 fL (7.4-10.4); MONOCYTES 13.6 % (2-11); NEUTROPHILS 70.4 % (40-80); PLATELET COUNT 167 10x3/uL (130-400); RBC 4.05 10x6/uL (4.20-6.10)
[2017-09-04 09:20] LABS: ANION GAP 10.6 mmol/L (8-16); CALCIUM 9.4 mg/dL (8.5-10.1); CARBON DIOXIDE 33.8 mmol/L (21.0-32.0); CREATININE - SERUM 1.1 mg/dL (0.6-1.3); POTASSIUM - SERUM 4.4 mmol/L (3.5-5.1)
[2017-09-04 10:19] VITALS: Ht 188 cm; Wt 72.6 kg
[2017-09-04 20:06] VITALS: BP 118/40
[2017-09-05 08:04] VITALS: BP 125/44
[2017-09-05 19:43] VITALS: BP 135/52
[2017-09-06 09:45] VITALS: BP 119/58
[2017-09-07 02:10] VITALS: BP 137/63
[2017-09-07 08:00] VITALS: BP 128/67
[2017-09-07 19:25] VITALS: BP 158/81
[2017-09-08 08:00] VITALS: BP 142/64
[2017-09-09 02:29] VITALS: BP 132/60
[2017-09-09 06:10] LABS: BASOPHILS 0.1 % (0-2); EOSINOPHILS 0.1 % (0-7); HEMATOCRIT 35.1 % (42.0-54.0); HEMOGLOBIN 11.9 g/dL (13.5-17.5); IMMATURE GRANULOCYTES 0.1 % (0-5); LYMPHOCYTES 9.4 % (15-50); MCHC 33.9 g/dL (31.0-37.0); MCV 91.4 fL (80.0-100.0); MEAN PLATELET VOLUME 10.4 fL (7.4-10.4); NEUTROPHILS 78.3 % (40-80); PLATELET COUNT 165 10x3/uL (130-400); RBC 3.84 10x6/uL (4.20-6.10); RDW 13.9 % (11.5-14.5); WBC 6.9 10x3/uL (4.8-10.8)
[2017-09-09 06:26] LABS: CALC OSMOLALITY 267 mosm/kg (275-300); CALCIUM 8.9 mg/dL (8.5-10.1); CARBON DIOXIDE 34.8 mmol/L (21.0-32.0); CHLORIDE - SERUM 94 mmol/L (98-107); CREATININE - SERUM 0.8 mg/dL (0.6-1.3); GLUCOSE 89 mg/dL (74-106); POTASSIUM - SERUM 4.9 mmol/L (3.5-5.1); SODIUM 133 mmol/L (136-145); UREA NITROGEN 21 mg/dL (7-18); eGFR NON AFRICAN AMERICAN > 90 mL/min (90-120)
[2017-09-09 08:00] VITALS: BP 152/76
[2017-09-09 21:00] VITALS: BP 138/81
[2017-09-10 08:00] VITALS: BP 149/65
[2017-09-10 19:00] VITALS: BP 146/60
[2017-09-11 07:57] LABS: BASOPHILS 0 % (0-2); EOSINOPHILS 0.3 % (0-7); HEMATOCRIT 34.3 % (42.0-54.0); HEMOGLOBIN 11.5 g/dL (13.5-17.5); IMMATURE GRANULOCYTES 0.6 % (0-5); LYMPHOCYTES 11.7 % (15-50); MCH 30.5 pg (26.0-34.0); MCHC 33.5 g/dL (31.0-37.0); MEAN PLATELET VOLUME 10.5 fL (7.4-10.4); MONOCYTES 12.8 % (2-11); NEUTROPHILS 74.6 % (40-80); RBC 3.77 10x6/uL (4.20-6.10); RDW 13.7 % (11.5-14.5); WBC 6.2 10x3/uL (4.8-10.8)
[2017-09-11 07:58] LABS: PLATELET COUNT 207 10x3/uL (130-400)
[2017-09-11 08:12] LABS: CALC OSMOLALITY 270 mosm/kg (275-300); CARBON DIOXIDE 36.8 mmol/L (21.0-32.0); CHLORIDE - SERUM 95 mmol/L (98-107); CREATININE - SERUM 0.9 mg/dL (0.6-1.3); GLUCOSE 97 mg/dL (74-106); POTASSIUM - SERUM 4.9 mmol/L (3.5-5.1); SODIUM 134 mmol/L (136-145); UREA NITROGEN 20 mg/dL (7-18); eGFR NON AFRICAN AMERICAN 85 mL/min (90-120)
[2017-09-11 09:31] VITALS: BP 119/48
[2017-09-11 19:05] VITALS: BP 139/68
[2017-09-12 06:58] VITALS: BP 139/69
[2017-09-12 19:58] VITALS: BP 152/70
[2017-09-13 06:28] LABS: BASOPHILS 0.1 % (0-2); EOSINOPHILS 0.1 % (0-7); HEMATOCRIT 34.2 % (42.0-54.0); HEMOGLOBIN 11.8 g/dL (13.5-17.5); IMMATURE GRANULOCYTES 0.9 % (0-5); LYMPHOCYTES 7.6 % (15-50); MCH 31.1 pg (26.0-34.0); MCHC 34.5 g/dL (31.0-37.0); MONOCYTES 9.2 % (2-11); NEUTROPHILS 82.1 % (40-80); PLATELET COUNT 245 10x3/uL (130-400); RDW 13.5 % (11.5-14.5)
[2017-09-13 06:36] LABS: WBC 10.7 10x3/uL (4.8-10.8)
[2017-09-13 07:01] LABS: CALC OSMOLALITY 263 mosm/kg (275-300); CALCIUM 9.3 mg/dL (8.5-10.1); CARBON DIOXIDE 33.5 mmol/L (21.0-32.0); CHLORIDE - SERUM 92 mmol/L (98-107); CREATININE - SERUM 0.8 mg/dL (0.6-1.3); GLUCOSE 86 mg/dL (74-106); POTASSIUM - SERUM 5.1 mmol/L (3.5-5.1); SODIUM 131 mmol/L (136-145); UREA NITROGEN 19 mg/dL (7-18); eGFR NON AFRICAN AMERICAN > 90 mL/min (90-120)
[2017-09-13 08:14] VITALS: BP 153/70
[2017-09-13 23:18] VITALS: BP 148/83
[2017-09-14 07:11] VITALS: BP 128/51
[2017-09-14 19:39] VITALS: BP 146/65
[2017-09-15 08:00] VITALS: BP 148/71
[2017-09-15 19:45] VITALS: BP 111/58
[2017-09-16 08:26] VITALS: BP 142/58
[2017-09-16 20:06] VITALS: BP 158/64
[2017-09-17 08:04] VITALS: BP 165/60
== END 2017-09-17 12:30 | disposition home or self-care (01) | DRG 91 ==
LOC: D.REHAB 18:45
PROVIDERS: Emergency Medicine; Family Medicine
DX: G72.89 Other specified myopathies (principal); J15.9 Unspecified bacterial pneumonia; E43 Unspecified severe protein-calorie malnutrition; J44.1 Chronic obstructive pulmonary disease with (acute) exacerbation; I50.32 Chronic diastolic (congestive) heart failure; J90 Pleural effusion, not elsewhere classified; J96.10 Chronic respiratory failure, unspecified whether with hypoxia or hypercapnia; I48.92 Unspecified atrial flutter; J44.0 Chronic obstructive pulmonary disease with (acute) lower respiratory infection; I48.2 Chronic atrial fibrillation; I11.0 Hypertensive heart disease with heart failure; D64.9 Anemia, unspecified; E11.9 Type 2 diabetes mellitus without complications; I48.91 Unspecified atrial fibrillation; I49.5 Sick sinus syndrome; Z99.81 Dependence on supplemental oxygen; I25.119 Atherosclerotic heart disease of native coronary artery with unspecified angina pectoris; E86.0 Dehydration; R62.7 Adult failure to thrive; R63.4 Abnormal weight loss; R53.1 Weakness; N40.0 Benign prostatic hyperplasia without lower urinary tract symptoms; E87.6 Hypokalemia; R33.9 Retention of urine, unspecified; R53.81 Other malaise; K52.9 Noninfective gastroenteritis and colitis, unspecified; G62.9 Polyneuropathy, unspecified; I07.1 Rheumatic tricuspid insufficiency